=== PATIENT | female | born 1985 | race Caucasian/White ===

== ENCOUNTER 2020-02-10 19:26 | Emergency (ER) | payer OTHER, SELFPAY ==
[2020-02-10 19:35] VITALS: BP 124/80; PULSE 80; RESP 20; TEMP 36.8; O2SAT 97
--- NOTE | 2020-02-10 19:41 | ED.URI ---
HPI - URI/Sore Throat General Chief Complaint: Upper Respiratory Infection Stated Complaint: sore throat and right ear ache Time Seen by Provider: 02/10/20 19:41 Source: patient Mode of arrival: ambulatory Limitations: no limitations History of Present Illness HPI Narrative: Mirna Membreno is a 34 yo female with a PMH of depression comes to [facility] care with sore throat and R ear pain that started today Related Data Home Medications Medication Instructions Recorded Confirmed fluoxetine 40 mg PO DAILY 09/18/19 09/19/19 Allergies Allergy/AdvReac Type Severity Reaction Status Date / Time No Known Drug Allergies Allergy Verified 09/19/19 04:42 Review of Systems Review of Systems: Narrative: CONSTITUTIONAL: Denies fever, chills, sweats. EYES: Denies visual changes, redness, discharge. ENT: Denies rhinorrhea, congestion, has sore throat, has right otalgia. CARDIOVASCULAR: Denies chest pain, palpitations, edema. RESPIRATORY: Denies dyspnea, wheezing, cough GASTROINTESTINAL: Denies abdominal pain, nausea, vomiting, diarrhea. GENITOURINARY: Denies dysuria, hematuria, abnormal discharge SKIN: Denies rash or itching. NEUROLOGIC: Denies numbness, or focal weakness. PSYCHIATRIC: Denies anxiety or depression. PMFSH Past Medical History Medical History Anxiety Morbid obesity Family History Family History Unknown FH: GARO-BSO (total abdominal hysterectomy and bilateral salpingo-oophorectomy) Sibling Growth problem Mother Hypertension Father Hypertension Social History Social History Smoking status: Never smoker Substance use: never Gender identity (if verbalized by the patient): Female Spiritual care concerns: No Comments My nurse Exam Narrative: Exam Narrative: GENERAL: This is a well-nourished, well-developed patient, in mild distress. afebrile, HEAD: normocephalic, atraumatic. EYES: Sclera clear/white. Vision is grossly intact. EARS: External ears normal, auditory canals clear and without drainage, TMs normal without perforation. Hearing grossly intact. NOSE: External nose normal with nasal discharge, nares without redness, has rhinorrhea. THROAT: Mucous membranes moist, posterior pharynx mild erythema NECK: Neck supple, mild L tender CARDIOVASCULAR: Regular rate and rhythm without murmurs, gallops, or rubs. RESPIRATORY: Clear to auscultation. Breath sounds equal bilaterally. No wheezes, rales, or rhonchi. Occ dry cough GASTROINTESTINAL: Abdomen soft, non-tender, SKIN: warm, intact with no suspicious lesions or rash, good texture and turgor. NEURO: awake, alert, and oriented to person, place and time. There were no obvious focal neurologic abnormalities. Steady gait EXTREMITIES: Normal range of motion. BACK: Nontender without deformity Course Course Emergency Course: Strep negative Started on claritin, cepacol lozenges MDM - URI/Sore Throat Differential Diagnosis Differential diagnosis: Likely upper respiratory infection, sinusitis, viral infection and pharyngitis Lab Data Labs: Strep Screen Presumptive Negative *(Reference Range: Negative)* Discharge Plan Discharge Clinical Impression: Pharyngitis Qualifiers: Pharyngitis/tonsillitis etiology: unspecified etiology Qualified Code(s): J02.9 - Acute pharyngitis, unspecified Patient Disposition: Home, Self-Care Condition: Stable Instructions: Pharyngitis (ED) Additional Instructions: Get cepacol lozenges and claritin. May use flonase if need additional control of nasal drainage Prescriptions: No Action fluoxetine 40 mg capsule 40 mg PO DAILY RF: 0 Follow-up/Referrals: UNKNOWN,DOCTOR [Primary Care Provider] - Stand Alone Forms: Work/School Release IP Time of Disposition: 19:49
== END 2020-02-10 19:56 | disposition home or self-care (01) ==
PROVIDERS: Emergency Provider Nurse Practitioner
DX: J02.9 Acute pharyngitis, unspecified (principal); F32.9 Major depressive disorder, single episode, unspecified; F41.9 Anxiety disorder, unspecified; E66.01 Morbid (severe) obesity due to excess calories
CPT/HCPCS: 87081; 87880; 99213; G0463

== ENCOUNTER 2021-10-15 17:44 | Emergency (ER) | payer OTHER, SELFPAY ==
--- NOTE | 2021-10-15 17:45 | ED.URI ---
HPI - URI/Sore Throat General Chief Complaint: Upper Respiratory Infection Stated Complaint: Sore Throat Time Seen by Provider: 10/15/21 17:46 Source: patient and RN notes reviewed History of Present Illness HPI Narrative: Patient is a 35-year-old female who presents the urgent care with complaints of a sore throat that started Wednesday. Patient also reports of postnasal drainage. Patient denies of any known fevers, nausea, vomiting. Also reports of left ear pain. Patient denies of any known exposures to strep, influenza or Covid. Patient has had the Covid vaccine and is also had Covid. No other acute complaints. No acute distress noted. Patient aware of the plan of care. Some parts of this dictation were generated by voice recognition software and may contain typographical and/or grammatical inaccuracies. Related Data Home Medications Medication Instructions Recorded Confirmed fluoxetine 40 mg PO DAILY 09/18/19 09/19/19 Allergies Allergy/AdvReac Type Severity Reaction Status Date / Time No Known Allergies Allergy Verified 10/15/21 18:16 Review of Systems Review of Systems: CONSTITUTIONAL: Denies fever, chills, or sweats. EYES: Denies visual changes, redness, or discharge. ENT: Denies rhinorrhea, congestion, or otalgia. Reports of sore throat and postnasal drainage CARDIOVASCULAR: Denies chest pain, palpitations, or edema. RESPIRATORY: Denies cough or dyspnea. GASTROINTESTINAL: Denies abdominal pain, nausea, vomiting, or diarrhea. GENITOURINARY: Denies dysuria or hematuria. SKIN: Denies rash or itching. MUSCULOSKELETAL: Denies back pain, joint pain, or myalgia. NEUROLOGIC: Denies headache, numbness, or weakness. All other systems reviewed are negative, except as documented in HPI. [facility] Past Medical History Medical History (Updated 10/15/21 @ 18:14 by MECHELLE Bowden) Anxiety Morbid obesity Family History Family History Unknown FH: GARO-BSO (total abdominal hysterectomy and bilateral salpingo-oophorectomy) Sibling Growth problem Mother Hypertension Father Hypertension Social History Social History Smoking status: Never smoker Substance use: never Gender identity (if verbalized by the patient): Female Spiritual care concerns: No Comments At the time of my signature, I reviewed and agree with the nursing past medical, surgical, social, and family history. There is no relevant family history pertinent to the patient complaint. Exam Narrative: GENERAL: This is a well-nourished, well-developed patient, in no apparent distress. HEAD: normocephalic, atraumatic. EYES: PERRL. Sclera clear/white. Vision is grossly intact. Clear drainage EARS: External ears normal, auditory canals clear and without drainage, TMs normal without perforation. Hearing grossly intact. NOSE: External nose normal with no obvious nasal discharge, nares without redness, clear to yellow rhinorrhea. THROAT: Mucous membranes moist, posterior pharynx clear. Moderate postnasal drainage NECK: Neck supple CARDIOVASCULAR: Regular rate and rhythm without murmurs, gallops, or rubs. RESPIRATORY: Clear to auscultation. Breath sounds equal bilaterally. No wheezes, rales, or rhonchi. SKIN: warm, intact with no suspicious lesions or rash, good texture and turgor. NEURO: awake, alert, and oriented to person, place and time. There were no obvious focal neurologic abnormalities. EXTREMITIES: No clubbing, cyanosis, or edema. Course Vital Signs Vital signs: Vital Signs Temperature 98.4 F 10/15/21 17:50 Pulse Rate 99 10/15/21 17:50 Respiratory Rate 18 10/15/21 17:50 Blood Pressure 123/80 10/15/21 17:50 Pulse Oximetry 100 10/15/21 17:50 Temperature 98.4 F 10/15/21 17:50 Pulse Rate 99 10/15/21 17:50 Respiratory Rate 18 10/15/21 17:50 Blood Pressure 123/80 10/15/21 17:50 Pulse
[2021-10-15 17:50] VITALS: BP 123/80; PULSE 99; RESP 18; TEMP 36.9; O2SAT 100
== END 2021-10-15 18:15 | disposition home or self-care (01) ==
PROVIDERS: Emergency Provider Nurse Practitioner Family
DX: J02.9 Acute pharyngitis, unspecified (principal); F41.9 Anxiety disorder, unspecified; E66.01 Morbid (severe) obesity due to excess calories; Z68.37 Body mass index [BMI] 37.0-37.9, adult; Z86.16 Personal history of COVID-19
CPT/HCPCS: 87081; 87880; 99213; G0463

== ENCOUNTER 2021-10-24 16:26 | Emergency (ER) | payer OTHER, SELFPAY ==
[2021-10-24 16:30] VITALS: BP 116/77; PULSE 86; RESP 16; TEMP 36.8; O2SAT 100
--- NOTE | 2021-10-24 16:35 | ED.URI ---
HPI - URI/Sore Throat General Chief Complaint: Ear Stated Complaint: ear pain Time Seen by Provider: 10/24/21 16:30 Source: patient and RN notes reviewed History of Present Illness HPI Narrative: Patient is a 35-year-old female who presents the urgent care with complaints of left ear pain since yesterday. Patient was seen on the eighth for a sore throat which was negative for strep. States all of her children have been diagnosed with influenza A this past week however she denies of any flulike symptoms. Patient denies a fever or drainage from the ear. Patient is taking ibuprofen for her symptoms. No other acute complaints. No acute distress noted. Patient read the plan of care. Some parts of this dictation were generated by voice recognition software and may contain typographical and/or grammatical inaccuracies. Related Data Home Medications Medication Instructions Recorded Confirmed fluoxetine 40 mg PO DAILY 09/18/19 10/24/21 bupropion HCl 150 mg PO DAILY 10/24/21 10/24/21 Allergies Allergy/AdvReac Type Severity Reaction Status Date / Time No Known Allergies Allergy Verified 10/24/21 16:37 Review of Systems Review of Systems: CONSTITUTIONAL: Denies fever, chills, or sweats. EYES: Denies visual changes, redness, or discharge. ENT: Denies rhinorrhea, congestion, sore throat. Reports of left otalgia CARDIOVASCULAR: Denies chest pain, palpitations, or edema. RESPIRATORY: Denies cough or dyspnea. GASTROINTESTINAL: Denies abdominal pain, nausea, vomiting, or diarrhea. GENITOURINARY: Denies dysuria or hematuria. SKIN: Denies rash or itching. MUSCULOSKELETAL: Denies back pain, joint pain, or myalgia. NEUROLOGIC: Denies headache, numbness, or weakness. All other systems reviewed are negative, except as documented in HPI. [facility], [facility] Past Medical History Medical History (Updated 10/24/21 @ 16:40 by MECHELLE Bowden) Anxiety Morbid obesity Family History Family History Unknown FH: GARO-BSO (total abdominal hysterectomy and bilateral salpingo-oophorectomy) Sibling Growth problem Mother Hypertension Father Hypertension Social History Social History Smoking status: Never smoker Substance use: never Gender identity (if verbalized by the patient): Female Spiritual care concerns: No Comments At the time of my signature, I reviewed and agree with the nursing past medical, surgical, social, and family history. There is no relevant family history pertinent to the patient complaint. Exam Narrative: GENERAL: This is a well-nourished, well-developed patient, in no apparent distress. HEAD: normocephalic, atraumatic. EYES: PERRL. Sclera clear/white. Vision is grossly intact. EARS: External ears normal, auditory canals clear and without drainage, mild fluid noted behind bilateral TMs without otitis, TMs normal without perforation. Hearing grossly intact. NOSE: External nose normal with no obvious nasal discharge, nares without redness, no rhinorrhea. THROAT: Mucous membranes moist, posterior pharynx clear. Mild postnasal drainage NECK: Neck supple SKIN: warm, intact with no suspicious lesions or rash, good texture and turgor. NEURO: awake, alert, and oriented to person, place and time. There were no obvious focal neurologic abnormalities. EXTREMITIES: No clubbing, cyanosis, or edema. Course Vital Signs Vital signs: Vital Signs Temperature 98.2 F 10/24/21 16:30 Pulse Rate 86 10/24/21 16:30 Respiratory Rate 16 10/24/21 16:30 Blood Pressure 116/77 10/24/21 16:30 Pulse Oximetry 100 10/24/21 16:30 Temperature 98.2 F 10/24/21 16:30 Pulse Rate 86 10/24/21 16:30 Respiratory Rate 16 10/24/21 16:30 Blood Pressure 116/77 10/24/21 16:30 Pulse Oximetry 100 10/24/21 16:30 Reviewed MDM - URI/Sore Throat MDM Narrative Medical decision making narrative: A
== END 2021-10-24 16:45 | disposition home or self-care (01) ==
PROVIDERS: Emergency Provider Nurse Practitioner Family
DX: H92.02 Otalgia, left ear (principal); F41.9 Anxiety disorder, unspecified; E66.01 Morbid (severe) obesity due to excess calories; Z68.37 Body mass index [BMI] 37.0-37.9, adult; Z86.16 Personal history of COVID-19
CPT/HCPCS: 99213; G0463

== ENCOUNTER 2022-11-17 11:15 | Emergency (ER) | payer OTHER, SELFPAY ==
[2022-11-17 11:20] VITALS: BP 126/80; PULSE 99; RESP 20; TEMP 37.1; O2SAT 100
--- NOTE | 2022-11-17 12:33 | ED.URI ---
HPI - URI/Sore Throat General Chief Complaint: Upper Respiratory Infection Stated Complaint: cough and tight chest Time Seen by Provider: 11/17/22 12:33 Source: patient and RN notes reviewed Mode of arrival: ambulatory Limitations: no limitations History of Present Illness HPI Narrative: 37-year-old female presents with cough, chest tightness, chest discomfort with cough she reports she had a sinus infection that started about 2 weeks ago, the sinus symptoms have improved, however her cough has worsened. She denies taking any cough medications. She denies shortness of breath. She reports she used her daughter's inhaler this morning with some improvement to her cough. MD elicited complaint: cough Related Data Home Medications Medication Instructions Recorded Confirmed fluoxetine 40 mg capsule 40 mg PO DAILY 09/18/19 10/24/21 bupropion HCl 150 mg 24 hr tablet, 150 mg PO DAILY 10/24/21 10/24/21 extended release Allergies Allergy/AdvReac Type Severity Reaction Status Date / Time No Known Allergies Allergy Verified 11/17/22 12:41 Review of Systems Review of Systems: CONSTITUTIONAL: Denies malaise, chills, sweats, or fever. EYES: Denies visual changes, redness, or discharge. ENT: Denies rhinorrhea, congestion, sinus pain, otalgia and sore throat. CARDIOVASCULAR: Denies chest pain, palpitations, or edema. RESPIRATORY: Reports persistent cough, chest congestion. Denies dyspnea. GASTROINTESTINAL: Denies abdominal pain, nausea, vomiting, diarrhea SKIN: Denies rash or itching. MUSCULOSKELETAL: Denies myalgia. NEUROLOGIC: Denies headache. All systems reviewed & are unremarkable except as noted in HPI and below PMFSH Past Medical History Medical History (Updated 11/17/22 @ 12:38 by Cheri Pike NP) Anxiety Morbid obesity Family History Family History Unknown FH: GARO-BSO (total abdominal hysterectomy and bilateral salpingo-oophorectomy) Sibling Growth problem Mother Hypertension Father Hypertension Social History Social History Smoking status: Never smoker Substance use: never Gender identity (if verbalized by the patient): Female Spiritual care concerns: No Comments At time of signature, agree with nursing past medical, surgical, social and family history. There is no relevant family history pertinent to the presenting complaint Exam Narrative: GENERAL: Well-appearing, well-nourished, and in no acute distress. HEAD: Normocephalic EYES: PERRLA, conjunctivae clear ENT: Nares clear. Mucous membranes moist. TM pearly lorenzo with dull light reflex bilaterally; no tragal tenderness. Oropharynx not erythematous without lesions. Tonsils not enlarged and without exudate, no drooling, no hoarseness, no trismus, uvula midline. NECK: Supple. No lymphadenopathy CHEST: Clear to auscultation, breath sounds equal. No wheezing, rhonchi, rales, or stridor. No respiratory distress, speaks in full sentences. HEART: Regular rate and rhythm. No murmur heard. SKIN: Warm, dry, no rash. NEURO: Alert and oriented x3. PSYCH: Normal mood and affect Course Course Emergency Course: Patient is aware of diagnosis, understands and agrees to treatment plan. Anticipatory guidance given. Patient agrees to follow-up as directed and is aware of reasons to seek care at the emergency department. Portions of this record may have been created with voice recognition software Level of Care: Express Care Visit Vital Signs Vital signs: Vital Signs Temperature 98.8 F 11/17/22 11:20 Pulse Rate 99 11/17/22 11:20 Respiratory Rate 11/17/22 11:20 Blood Pressure 126/80 11/17/22 11:20 Pulse Oximetry 100 11/17/22 11:20 Oxygen Delivery Room Air 11/17/22 11:20 Temperature 98.8 F 11/17/22 11:20 Pulse Rate 99 11/17/22 11:20 Respiratory Rate 11/17/22 11:20 Blood Pressure 126/8
== END 2022-11-17 12:43 | disposition home or self-care (01) ==
PROVIDERS: Emergency Provider Nurse Practitioner
DX: J40 Bronchitis, not specified as acute or chronic (principal); F41.9 Anxiety disorder, unspecified; E66.01 Morbid (severe) obesity due to excess calories; Z68.38 Body mass index [BMI] 38.0-38.9, adult
CPT/HCPCS: 99213; G0463

== ENCOUNTER 2023-01-27 16:04 | Emergency (ER) | payer OTHER, SELFPAY ==
[2023-01-27 16:25] VITALS: BP 135/80; PULSE 99; RESP 12; TEMP 36.6; O2SAT 100
--- NOTE | 2023-01-27 16:27 | ED.EYEPROB ---
HPI - Eye Problem General Chief complaint: Eye Problems Stated complaint: right eye rdness/pain/discharge Time Seen by Provider: 01/27/23 16:27 Source: patient Mode of arrival: ambulatory Limitations: no limitations History of Present Illness HPI Narrative: Mirna is a 37-year-old female patient presenting to clinic today with complaints of right eye redness, discomfort, and discharge x1 week. She reports she has been putting in some [id number] eyedrops and this has been helping slightly. Reports that she woke up this morning with some greenish yellow discharge coming from her eye. She also reports some discomfort and redness. No eye injury or foreign body suspected. Related Data Home Medications Medication Instructions Recorded Confirmed fluoxetine 40 mg capsule 40 mg PO DAILY 09/18/19 01/27/23 Allergies Allergy/AdvReac Type Severity Reaction Status Date / Time bupropion [From Wellbutrin] Allergy Hives Verified 01/27/23 16:30 Review of Systems Review of Systems: Pertinent positives per HPI. Patient denies any fever, chills, rash, headache, visual changes, dizziness, cough, runny nose, sore throat, shortness of breath, chest pain, palpitations, nausea, vomiting, diarrhea, constipation, abdominal pain, or any urinary issues. [facility] Past Medical History Medical History (Updated 01/27/23 @ 16:35 by Aditya Strong APRN) Anxiety Morbid obesity Family History Family History Unknown FH: GARO-BSO (total abdominal hysterectomy and bilateral salpingo-oophorectomy) Sibling Growth problem Mother Hypertension Father Hypertension Social History Social History Smoking status: Never smoker Substance use: never Gender identity (if verbalized by the patient): Female Spiritual care concerns: No Comments At the time of my signature, I reviewed and agree with the nursing past medical, surgical, social, and family history. There is no relevant family history pertinent to the patient complaint. Exam Narrative: General: Well-developed, well nourished, in no apparent distress Head: Normocephalic, atraumatic Eyes: Pupils equally round and reactive to light bilaterally, EOM intact, left sclera and conjunctive clear, right sclera clear and conjunctiva injected, right eye yellow mucopurulent discharge, lids normal Ears: TMs intact and clear, ear canals clear, no drainage, grossly hearing normal. Nose: Nares patent, no discharge, no inflammation, no sinus tenderness. Mouth: Oropharynx without lesions or masses, good dentition, MMM. Neck: Supple, trachea midline, no enlargement of anterior or posterior cervical nodes, no thyroid masses or goiter palpable. Cardio: Regular rate and rhythm, s1 and s2 normal, no murmur appreciated. Resp: Clear to auscultation bilaterally anteriorly and posteriorly, no rhonchi, rales, wheezing or rubs Course Course Emergency Course: Portions of this record may have been created with voice recognition software. Level of Care: Express Care Visit Vital Signs Vital signs: Vital Signs Temperature 36.6 C 01/27/23 16:25 Pulse Rate 99 01/27/23 16:25 Respiratory Rate 12 01/27/23 16:25 Blood Pressure 135/80 01/27/23 16:25 Pulse Oximetry 100 01/27/23 16:25 Oxygen Delivery Room Air 01/27/23 16:25 Temperature 36.6 C 01/27/23 16:25 Pulse Rate 99 01/27/23 16:25 Respiratory Rate 12 01/27/23 16:25 Blood Pressure 135/80 01/27/23 16:25 Pulse Oximetry 100 01/27/23 16:25 Oxygen Delivery Room Air 01/27/23 16:25 Vital signs reviewed MDM - Eye Problem MDM Narrative Medical decision making narrative: At the time of visit patient is resting comfortably on the exam table. I suspect patient has conjunctivitis. Will send in prescription for tobramycin eyedrops. Supportive measures were discussed with the pat
== END 2023-01-27 16:40 | disposition home or self-care (01) ==
PROVIDERS: Emergency Provider Nurse Practitioner Family
DX: H10.31 Unspecified acute conjunctivitis, right eye (principal); F41.9 Anxiety disorder, unspecified
CPT/HCPCS: 99213; G0463